=== PATIENT | male | born 1985 | race African-American/Black ===

== ENCOUNTER 2025-04-29 13:00 | Inpatient (IN) | payer OTHER, MEDICAID, MEDICARE ==
[~2025-04-29] VITALS: Ht 175.3 cm; Wt 61.5 kg
[2025-04-29 13:04] VITALS: O2SAT 98
[2025-04-29] MEDS: FUROSEMIDE 40MG/4ML VIAL IV SCH (14:29)
[2025-04-29] MEDS: LABETALOL 5MG/ML 4ML INJ IV SCH (14:31)
[2025-04-29] MEDS: DILTIAZEM HCL 5MG/ML 5ML VIAL IV ONE (15:31)
[2025-04-29 15:45] LABS: BASOPHILS % 1.1 % (0.0-2.0); EOSINOPHILS % 0.1 % (0.0-5.0); HEMATOCRIT. 34.7 % (42.0-52.0); HEMOGLOBIN. 10.9 g/dL (14.0-18.0); LYMPHOCYTES % 12.4 % (20.0-50.0); MEAN PLATELET VOLUME 9.5 fl (7.4-10.4); MONOCYTES % 10.4 % (2.0-8.0); NEUTROPHILS % 76.0 % (40.0-76.0); PLATELET 193 x1000/uL (130-400); RED BLOOD CELL COUNT 4.15 mill/uL (4.7-6.1); RED CELL DISTRIBUTION WIDTH 17.9 % (11.6-14.6)
[2025-04-29 15:52] LABS: INR 1.5
[2025-04-29 15:57] LABS: ETHANOL BLOOD < 10 mg/dL (<10)
[2025-04-29 15:58] LABS: ASPARTATE AMINOTRANSFERASE 75 IU/L (<34); BILIRUBIN DIRECT 0.5 mg/dL (<=3.0)
[2025-04-29 15:59] LABS: BILIRUBIN TOTAL 1.3 mg/dL (0.1-1.0); PROTEIN TOTAL 7.3 g/dL (6.0-8.3)
[2025-04-29 16:05] LABS: CREATININE 20.7 mg/dL (0.6-1.3); UREA NITROGEN BLOOD 103 mg/dL (9-23)
[2025-04-29] MEDS: DILTIAZEM HCL 5MG/ML 5ML VIAL IV SCH (16:17)
[2025-04-29] MEDS: ALBUTEROL (0.5%) 2.5MG/0.5ML NEB HHN SCH (16:40)
[2025-04-29] MEDS: SODIUM ZIRCONIUM CYCLOSILICATE 10GM/PACKET PO SCH (16:41)
[2025-04-29] MEDS: CALCIUM GLUCONATE 100MG/ML 10ML VIAL IV SCH (16:47)
[2025-04-29] MEDS: INSULIN REGULAR (HUMULIN R) 1000UNITS/10ML VIAL IV SCH (16:52)
[2025-04-29] MEDS: DEXTROSE 50% WATER 50ML SYRINGE IV SCH (16:56)
[2025-04-29] MEDS: SODIUM BICARBONATE 8.4% 50MEQ/50ML VIAL IV SCH (17:03)
[2025-04-29 19:21] LABS: UREA NITROGEN BLOOD 92.0 mg/dL (9-23)
[2025-04-29 19:24] LABS: CREATININE 20.8 mg/dL (0.6-1.3)
[2025-04-29 20:00] VITALS: BP 219/156; PULSE 120; RESP 22; TEMP 36.9; O2SAT 100
[2025-04-29] MEDS ORDERED: CALC-1042 PO (20:32)
[2025-04-29] MEDS ORDERED: ATEN50TA PO (20:32)
[2025-04-29] MEDS ORDERED: NIFE20CA8 PO (20:32)
[2025-04-29] MEDS ORDERED: CLONIDINE 0.1MG TABLET PO PRN (20:45)
[2025-04-29] MEDS ORDERED: NALOXONE HCL 0.4MG/ML VIAL IV PRN (21:00)
[2025-04-29] MEDS: NIFEDIPINE XL 90MG TAB PO SCH (21:08)
[2025-04-29] MEDS: LABETALOL HCL 200MG TABLET PO SCH (21:08)
[2025-04-29] MEDS: HYDRALAZINE HCL 10MG TABLET PO SCH (21:08)
[2025-04-29] MEDS: HYDROCODONE/ACETAMINOPHEN 10/325MG TABLET PO PRN (21:09)
[2025-04-29 23:50] VITALS: BP 176/112; PULSE 114; RESP 18; TEMP 36.55848; O2SAT 100
[2025-04-29 23:55] VITALS: BP 175/122; PULSE 121; RESP 19; TEMP 36.55848; O2SAT 100
[2025-04-29 23:56] VITALS: BP 219/156; PULSE 120; RESP 20; TEMP 36.9184
[2025-04-30] VITALS (13 sets, daily range): BP systolic 108–184; BP diastolic 70–122; PULSE 103–130; RESP 16–20; TEMP 36.1–37.1; O2SAT 91–100
[2025-04-30] MEDS ORDERED: DIPH50CA42 MT (01:43)
[2025-04-30 03:34] LABS: HEPATITIS A AB IGM NEGATIVE (Negative)
[2025-04-30 03:35] LABS: HEPATITIS B CORE AB IGM NEGATIVE (Negative); HEPATITIS C AB NON REACTIVE (Neg) (Negative)
[2025-04-30] MEDS: SEVELAMER CARBONATE 800 MG TABLET PO SCH (09:08)
[2025-04-30 10:45] LABS: BASOPHILS % 1.8 % (0.0-2.0); EOSINOPHILS % 1.4 % (0.0-5.0); HEMATOCRIT. 31.2 % (42.0-52.0); HEMOGLOBIN. 10.0 g/dL (14.0-18.0); LYMPHOCYTES % 20.0 % (20.0-50.0); MEAN PLATELET VOLUME 9.1 fl (7.4-10.4); MONOCYTES % 10.9 % (2.0-8.0); NEUTROPHILS % 65.9 % (40.0-76.0); PLATELET 163 x1000/uL (130-400); RED BLOOD CELL COUNT 3.76 mill/uL (4.7-6.1); RED CELL DISTRIBUTION WIDTH 17.8 % (11.6-14.6)
[2025-04-30 10:57] LABS: UREA NITROGEN BLOOD 51.0 mg/dL (9-23)
[2025-04-30 10:59] LABS: PHOSPHORUS 5.0 mg/dL (2.5-4.9)
[2025-04-30 11:17] LABS: CREATININE 14.0 mg/dL (0.6-1.3)
[2025-05-01] VITALS (7 sets, daily range): BP systolic 115–140; BP diastolic 69–90; PULSE 99–122; RESP 17–20; TEMP 36.3–36.7; O2SAT 95–100
[2025-05-01] MEDS: LABETALOL HCL 200MG TABLET PO SCH (12:07)
[2025-05-01] MEDS: ENOXAPARIN 80MG/0.8ML SYR SUBCUT SCH (13:00)
[2025-05-01 16:49] LABS: TROPONIN I HIGH SENSITIVITY 314 ng/L (3.0-53)
[2025-05-02] VITALS: BP 107/72; PULSE 119; RESP 17; TEMP 36.4; O2SAT 98
[2025-05-02 04:00] VITALS: BP 117/78; PULSE 121; RESP 18; TEMP 36.4; O2SAT 99
[2025-05-02 08:00] VITALS: BP 132/72; PULSE 120; RESP 16; TEMP 36.8; O2SAT 100
[2025-05-02 12:00] VITALS: BP 121/79; PULSE 114; RESP 16; TEMP 36.6; O2SAT 100
[2025-05-02 16:00] VITALS: BP 115/70; PULSE 120; RESP 18; TEMP 36.7; O2SAT 99
[2025-05-02 20:00] VITALS: BP_SYST 110; BP_SYST 92; BP_DIAS 52; BP_DIAS 75; PULSE 113; RESP 17; TEMP 36.4; O2SAT 96
[2025-05-03] VITALS (12 sets, daily range): BP systolic 118–153; BP diastolic 70–103; PULSE 102–123; RESP 16–18; TEMP 36.3918–37.1; O2SAT 98
[2025-05-03] MEDS: HYDROCODONE/ACETAMINOPHEN 10/325MG TABLET PO PRN (01:57)
[2025-05-03 18:19] LABS: BASOPHILS % 1.8 % (0.0-2.0); EOSINOPHILS % 4.1 % (0.0-5.0); HEMATOCRIT. 31.2 % (42.0-52.0); HEMOGLOBIN. 10.1 g/dL (14.0-18.0); LYMPHOCYTES % 22.3 % (20.0-50.0); MEAN PLATELET VOLUME 8.8 fl (7.4-10.4); MONOCYTES % 13.6 % (2.0-8.0); NEUTROPHILS % 58.2 % (40.0-76.0); PLATELET 180 x1000/uL (130-400); RED BLOOD CELL COUNT 3.73 mill/uL (4.7-6.1); RED CELL DISTRIBUTION WIDTH 17.9 % (11.6-14.6)
[2025-05-03 18:31] LABS: UREA NITROGEN BLOOD 38.0 mg/dL (9-23)
[2025-05-03 18:43] LABS: CREATININE 14.4 mg/dL (0.6-1.3)
[2025-05-03] MEDS: DILTIAZEM HCL 90MG TABLET PO SCH (21:47)
[2025-05-04 04:00] VITALS: BP 100/69; PULSE 60; RESP 17; TEMP 36.8; O2SAT 99
[2025-05-04 07:35] LABS: UREA NITROGEN BLOOD 42.0 mg/dL (9-23)
[2025-05-04 07:54] LABS: CREATININE 16.2 mg/dL (0.6-1.3)
[2025-05-04 08:00] VITALS: BP 109/70; PULSE 56; RESP 17; TEMP 36.2; O2SAT 97
[2025-05-04 08:05] LABS: BASOPHILS % 1.2 % (0.0-2.0); EOSINOPHILS % 3.5 % (0.0-5.0); HEMATOCRIT. 32.3 % (42.0-52.0); HEMOGLOBIN. 10.3 g/dL (14.0-18.0); LYMPHOCYTES % 36.8 % (20.0-50.0); MEAN PLATELET VOLUME 9.3 fl (7.4-10.4); MONOCYTES % 10.1 % (2.0-8.0); NEUTROPHILS % 48.4 % (40.0-76.0); PLATELET 166 x1000/uL (130-400); RED BLOOD CELL COUNT 3.86 mill/uL (4.7-6.1); RED CELL DISTRIBUTION WIDTH 18.0 % (11.6-14.6)
[2025-05-04] MEDS ORDERED: APIX5TAB MT (09:33)
[2025-05-04] MEDS ORDERED: DILT300C53 MT (09:33)
[2025-05-04 12:00] VITALS: BP 127/84; PULSE 76; RESP 17; TEMP 36.6; O2SAT 100
[2025-05-04 13:54] VITALS: BP 127/84; PULSE 76; RESP 17; TEMP 97.9
== END 2025-05-04 15:06 | disposition home or self-care (01) | DRG 291 ==
LOC: ER 14:28 → 5WST 17:40 → EDBEDREQ 17:46 → EDBEDREQTM 17:46 → ENRESERV 18:30
PROVIDERS: ADMIT Internal Medicine; ATTEND Internal Medicine
PROC: 5A1D70Z Performance of Urinary Filtration, Intermittent, Less than 6 Hours Per Day (ICD-10-PCS; principal; 2025-04-29)
PROC: 5A1D70Z Performance of Urinary Filtration, Intermittent, Less than 6 Hours Per Day (ICD-10-PCS; 2025-05-01)
PROC: 5A1D70Z Performance of Urinary Filtration, Intermittent, Less than 6 Hours Per Day (ICD-10-PCS; 2025-05-03)
DX: I13.2 Hypertensive heart and chronic kidney disease with heart failure and with stage 5 chronic kidney disease, or end stage renal disease (principal); I50.43 Acute on chronic combined systolic (congestive) and diastolic (congestive) heart failure; N18.6 End stage renal disease; E87.20 Acidosis, unspecified; I48.92 Unspecified atrial flutter; N17.9 Acute kidney failure, unspecified; Z99.2 Dependence on renal dialysis; Z79.01 Long term (current) use of anticoagulants; I16.1 Hypertensive emergency; D64.9 Anemia, unspecified; I48.20 Chronic atrial fibrillation, unspecified; E87.5 Hyperkalemia; Z79.899 Other long term (current) drug therapy; Z91.158 Patient's noncompliance with renal dialysis for other reason
CPT/HCPCS: 36415; 71045; 80048; 80076; 80320; 82962; 83735; 83880; 84100; 84145; 84443; 84484; 85025; 86705; 86709; 87340; 90935; 93005; 93306; 96374; 96375; 99291; J0612; J1650; J1938; J3490; G0480

== ENCOUNTER 2025-05-05 07:15 | Inpatient (IN) | payer OTHER, MEDICAID ==
[~2025-05-05] VITALS: Ht 170.2 cm; Wt 78.0 kg
[2025-05-05] VITALS (65 sets, daily range): BP systolic 107–185; BP diastolic 10–122; PULSE 41–97; RESP 12–32; TEMP 32.3–36.4; O2SAT 77–100
[2025-05-05] MEDS: PIPERACILLIN/TAZO 3.375G/50ML 50 ML IV SCH (00:16)
[~2025-05-05 07:15] MED LIST: APIX5TAB MT; CALC-1042 PO; DILT300C53 MT; DIPH50CA42 MT; NIFE20CA8 PO
[2025-05-05] MEDS ORDERED: VANCOMYCIN 1.5GM/250ML 250 ML IV STA (07:25)
[2025-05-05] MEDS ORDERED: CEFEPIME 2GM IN DEXT 5% 100ML IV ONE (07:30)
[2025-05-05] MEDS: CALCIUM CHLORIDE 1GM/10ML SYR IV ONE (07:39)
[2025-05-05] MEDS ORDERED: ACETAMINOPHEN 650MG/20.3ML UDC NG PRN (08:00)
[2025-05-05] MEDS ORDERED: ACETAMINOPHEN 650MG SUPP PR PRN ×3 (08:00→10:15)
[2025-05-05 08:06] LABS: HEMATOCRIT. 36.8 % (42.0-52.0); HEMOGLOBIN. 11.2 g/dL (14.0-18.0); MEAN PLATELET VOLUME 8.9 fl (7.4-10.4); PLATELET 132 x1000/uL (130-400); RED BLOOD CELL COUNT 4.10 mill/uL (4.7-6.1); RED CELL DISTRIBUTION WIDTH 19.2 % (11.6-14.6)
[2025-05-05 08:15] LABS: INR 1.5
[2025-05-05] MEDS: LACTATED RINGERS 1,000 ML IV SCH (08:20)
[2025-05-05] MEDS: CEFEPIME 2,000MG in DEXT 5% WATER 100ML IV SCH (08:25)
[2025-05-05] MEDS: EPINEPHRINE 5 MG in SODIUM CHLORIDE 0.9% 245 ML IV PRN (08:25)
[2025-05-05] MEDS: FENTANYL 2500MCG/250ML PMX 250 ML IV PRN (08:25)
[2025-05-05] MEDS ORDERED: LIDOCAINE HCL 1% 10 MG/ML 10ML VIAL ONE (08:27)
[2025-05-05 08:32] LABS: UREA NITROGEN BLOOD 39 mg/dL (9-23)
[2025-05-05 08:34] LABS: ASPARTATE AMINOTRANSFERASE 155 IU/L (<34); BILIRUBIN DIRECT 0.4 mg/dL (<=3.0)
[2025-05-05 08:35] LABS: BILIRUBIN TOTAL 0.8 mg/dL (0.1-1.0); PROTEIN TOTAL 7.1 g/dL (6.0-8.3)
[2025-05-05 08:37] LABS: CREATININE 17.5 mg/dL (0.6-1.3)
[2025-05-05 08:38] LABS: PHOSPHORUS 8.6 mg/dL (2.5-4.9)
[2025-05-05 08:42] LABS: TROPONIN I HIGH SENSITIVITY 163 ng/L (3.0-53)
[2025-05-05] MEDS: FENTANYL 2500MCG/250ML PMX 250 ML IV ONE (08:43)
[2025-05-05] MEDS: EPINEPHRINE 5 MG in SODIUM CHLORIDE 0.9% 245 ML IV STA (08:43)
[2025-05-05] MEDS: INSULIN REGULAR (HUMULIN R) 1000UNITS/10ML VIAL IV ONE (08:55)
[2025-05-05] MEDS: DEXTROSE 50% WATER 50ML SYRINGE IV ONE (08:55)
[2025-05-05] MEDS: VANCOMYCIN 1.5GM/250ML 250 ML IV SCH (09:11)
[2025-05-05] MEDS ORDERED: IPRATROPIUM/ALBUTEROL 0.5-3(2.5)MG/3ML NEB HHN PRN (09:30)
[2025-05-05 10:14] LABS: BG BASE EXCESS -26.4 mmol/L (-2.0-3.0); BG CARBOXYHEMOGLOBIN 0.9 % (0.5-1.5); BG DEOXYHEMOGLOBIN 1.3 % (0.0-5.0); BG FRACTION INSPIRED OXYGEN 100; BG HCO3 ACT 4.7 mmol/L (21.0-28.0); BG METHEMOGLOBIN 0.5 % (0.5-1.5); BG OXYGEN SATURATION 98.7 % (94.0-98.0); BG OXYHEMOGLOBIN 97.3 % (94.0-98.0); BG PCO2 25.2 mmHg (35.0-48.0); BG PEEP (cmH2O) 5.0 cmH2O; BG PH 6.886 (7.350-7.450); BG PO2 175.4 mmHg (83.0-108.0); BG SAMPLE SITE RIGHT RADIAL; BG TIDAL VOLUME(mL) 450.0 mL; BG TOTAL HEMOGLOBIN 7.3 g/dL (13.5-17.5); BG VENT MODE VENT - AC; BG VENT RATE 16.0 set
[2025-05-05] MEDS: SODIUM BICARBONATE 8.4% 50MEQ/50ML SYR IV NR (10:26)
[2025-05-05] MEDS: PANTOPRAZOLE SODIUM 40 MG/VIAL IV SCH (10:33)
[2025-05-05] MEDS ORDERED: NOREPINEPHRINE 32 MG in DEXT 5% WATER 218 ML IV PRN (11:00)
[2025-05-05 11:13] LABS: TROPONIN I HIGH SENSITIVITY 185 ng/L (3.0-53)
[2025-05-05] MEDS ORDERED: EPINEPHRINE 0.1MG/ML (1:10,000) 10ML SYR ONE (13:06)
[2025-05-05] MEDS ORDERED: SODIUM BICARBONATE 8.4% 50MEQ/50ML SYR IV ONE (13:06)
[2025-05-05] MEDS ORDERED: CALCIUM CHLORIDE 1GM/10ML SYR IV ONE (13:06)
[2025-05-05] MEDS ORDERED: MAGNESIUM SULFATE 4G IN WATER 100ML PREMIX IV ONE (13:06)
[2025-05-05] MEDS ORDERED: DEXTROSE 50% WATER 50ML SYRINGE IV ONE (13:06)
[2025-05-05 13:14] LABS: EOSINOPHILS % MANUAL 2.0 % (0.0-5.0); LYMPHOCYTES % MANUAL 38.0 % (20.0-50.0); MONOCYTES % MANUAL 20.0 % (2.0-8.0); MYELOCYTES % 1.0 % (0-0); NEUTROPHILS % MANUAL 39.0 % (45.0-75.0); PLATELET ESTIMATE NORMAL
[2025-05-05 13:39] LABS: HEPATITIS A AB IGM NEGATIVE (Negative)
[2025-05-05 13:40] LABS: HEPATITIS B CORE AB IGM NEGATIVE (Negative); HEPATITIS C AB NON REACTIVE (Neg) (Negative)
[2025-05-05] MEDS: EPINEPHRINE 10 MG in SODIUM CHLORIDE 0.9% 240 ML IV PRN (14:20)
[2025-05-05] MEDS: IPRATROPIUM/ALBUTEROL 0.5-3(2.5)MG/3ML NEB HHN SCH (14:57)
[2025-05-05] MEDS: ENOXAPARIN 80MG/0.8ML SYR SUBCUT SCH (15:34)
[2025-05-05 15:56] LABS: PLATELET 142 x1000/uL (130-400); RED BLOOD CELL COUNT 4.82 mill/uL (4.7-6.1); RED CELL DISTRIBUTION WIDTH 19.8 % (11.6-14.6)
[2025-05-05 16:11] LABS: UREA NITROGEN BLOOD 41 mg/dL (9-23)
[2025-05-05 16:43] LABS: CREATININE 16.5 mg/dL (0.6-1.3)
[2025-05-05 18:41] LABS: TROPONIN I HIGH SENSITIVITY 414 ng/L (3.0-53)
[2025-05-05] MEDS: LIDOCAINE 5% PATCH TOP SCH (20:00)
[2025-05-05 20:16] LABS: UREA NITROGEN BLOOD 29 mg/dL (9-23)
[2025-05-05 20:18] LABS: PHOSPHORUS 5.6 mg/dL (2.5-4.9)
[2025-05-05 20:19] LABS: CREATININE 12.1 mg/dL (0.6-1.3)
[2025-05-05] MEDS: NOREPINEPHRINE 32 MG in DEXT 5% WATER 218 ML IV PRN (20:56)
[2025-05-05] MEDS: DOPAMINE 400MG/250ML PREMIX 250 ML IV PRN (20:56)
[2025-05-05] MEDS: EPINEPHRINE 20 MG in SODIUM CHLORIDE 0.9% 480 ML IV PRN (20:57)
[2025-05-05 21:23] LABS: BG BASE EXCESS -14.8 mmol/L (-2.0-3.0); BG CARBOXYHEMOGLOBIN 0.9 % (0.5-1.5); BG DEOXYHEMOGLOBIN 5.5 % (0.0-5.0); BG FRACTION INSPIRED OXYGEN 40; BG HCO3 ACT 13.8 mmol/L (21.0-28.0); BG METHEMOGLOBIN 0.0 % (0.5-1.5); BG OXYGEN SATURATION 94.5 % (94.0-98.0); BG OXYHEMOGLOBIN 93.6 % (94.0-98.0); BG PCO2 42.6 mmHg (35.0-48.0); BG PEEP (cmH2O) 5.0 cmH2O; BG PH 7.127 (7.350-7.450); BG PO2 96.8 mmHg (83.0-108.0); BG TIDAL VOLUME(mL) 450.0 mL; BG TOTAL HEMOGLOBIN 11.8 g/dL (13.5-17.5); BG VENT MODE VENT - AC; BG VENT RATE 24.0 set
[2025-05-05 23:25] LABS: BASOPHILS % 0.8 % (0.0-2.0); EOSINOPHILS % 0.4 % (0.0-5.0); HEMATOCRIT. 34.5 % (42.0-52.0); HEMOGLOBIN. 11.0 g/dL (14.0-18.0); LYMPHOCYTES % 8.5 % (20.0-50.0); MEAN PLATELET VOLUME 8.2 fl (7.4-10.4); MONOCYTES % 4.1 % (2.0-8.0); NEUTROPHILS % 86.2 % (40.0-76.0); PLATELET 150 x1000/uL (130-400); RED BLOOD CELL COUNT 4.09 mill/uL (4.7-6.1); RED CELL DISTRIBUTION WIDTH 18.2 % (11.6-14.6)
[2025-05-05 23:39] LABS: TROPONIN I HIGH SENSITIVITY 770 ng/L (3.0-53)
[2025-05-06] VITALS (122 sets, daily range): BP systolic 90–170; BP diastolic 13–128; PULSE 83–106; RESP 16–32; TEMP 35.1–36.9; O2SAT 96–100
[2025-05-06] MEDS: PROPOFOL 10MG/ML 100ML 100 ML IV PRN ×2 (02:53→20:10)
[2025-05-06] MEDS ORDERED: LEVETIRACETAM 1,000MG in NACL 100ML PREMIX IV SCH (03:45)
[2025-05-06] MEDS: LEVETIRACETAM 1000MG PREMIX 100 ML IV SCH ×3 (04:05→20:31)
[2025-05-06 06:59] LABS: TROPONIN I HIGH SENSITIVITY 1339 ng/L (3.0-53)
[2025-05-06 08:33] LABS: HEMATOCRIT. 36.0 % (42.0-52.0); HEMOGLOBIN. 11.1 g/dL (14.0-18.0); MEAN PLATELET VOLUME 8.2 fl (7.4-10.4); PLATELET 150 x1000/uL (130-400); RED BLOOD CELL COUNT 4.15 mill/uL (4.7-6.1); RED CELL DISTRIBUTION WIDTH 18.9 % (11.6-14.6)
[2025-05-06 08:47] LABS: UREA NITROGEN BLOOD 38 mg/dL (9-23)
[2025-05-06 08:49] LABS: BILIRUBIN TOTAL 1.2 mg/dL (0.1-1.0); PROTEIN TOTAL 7.1 g/dL (6.0-8.3)
[2025-05-06] MEDS: MIDAZOLAM 100MG/100ML PMX 100 ML IV PRN (08:54)
[2025-05-06 09:00] LABS: ASPARTATE AMINOTRANSFERASE 1626 IU/L (<34)
[2025-05-06 09:03] LABS: CREATININE 12.7 mg/dL (0.6-1.3)
[2025-05-06 10:04] LABS: BG BASE EXCESS -3.8 mmol/L (-2.0-3.0); BG CARBOXYHEMOGLOBIN 0.5 % (0.5-1.5); BG DEOXYHEMOGLOBIN 0.2 % (0.0-5.0); BG FRACTION INSPIRED OXYGEN 60; BG HCO3 ACT 19.6 mmol/L (21.0-28.0); BG METHEMOGLOBIN 0.3 % (0.5-1.5); BG OXYGEN SATURATION 99.8 % (94.0-98.0); BG OXYHEMOGLOBIN 99.0 % (94.0-98.0); BG PCO2 30.6 mmHg (35.0-48.0); BG PEEP (cmH2O) 5.0 cmH2O; BG PH 7.425 (7.350-7.450); BG PO2 201.4 mmHg (83.0-108.0); BG SAMPLE SITE RIGHT RADIAL; BG TIDAL VOLUME(mL) 450.0 mL; BG TOTAL HEMOGLOBIN 11.6 g/dL (13.5-17.5); BG VENT MODE VENT - AC; BG VENT RATE 28.0 set
[2025-05-06] MEDS ORDERED: IOHEXOL-350 100 ML BOTTLE ONE (11:11)
[2025-05-06 11:40] LABS: BAND% 3.0 % (1.0-6.0); LYMPHOCYTES % MANUAL 4.0 % (20.0-50.0); MONOCYTES % MANUAL 5.0 % (2.0-8.0); NEUTROPHILS % MANUAL 88.0 % (45.0-75.0); PLATELET ESTIMATE NORMAL
[2025-05-06 14:02] LABS: TROPONIN I HIGH SENSITIVITY 1368 ng/L (3.0-53)
[2025-05-07] VITALS (102 sets, daily range): BP systolic 112–145; BP diastolic 72–98; PULSE 83–94; RESP 16–28; TEMP 37.00296–37.16964; O2SAT 97–100
[2025-05-07] MEDS: DOPAMINE 800MG PREMIX (DOUBLE) 250 ML IV PRN (05:28)
[2025-05-07] MEDS: DEXTROSE 50% WATER 50ML SYRINGE IV PRN (09:00)
[2025-05-07 09:29] LABS: BG BASE EXCESS 0.3 mmol/L (-2.0-3.0); BG CARBOXYHEMOGLOBIN 0.1 % (0.5-1.5); BG DEOXYHEMOGLOBIN 1.6 % (0.0-5.0); BG FRACTION INSPIRED OXYGEN 30; BG HCO3 ACT 20.9 mmol/L (21.0-28.0); BG METHEMOGLOBIN 0.3 % (0.5-1.5); BG OXYGEN SATURATION 98.4 % (94.0-98.0); BG OXYHEMOGLOBIN 98.0 % (94.0-98.0); BG PCO2 22.3 mmHg (35.0-48.0); BG PEEP (cmH2O) 5.0 cmH2O; BG PH 7.590 (7.350-7.450); BG PO2 109.4 mmHg (83.0-108.0); BG SAMPLE SITE RIGHT RADIAL; BG TIDAL VOLUME(mL) 500.0 mL; BG TOTAL HEMOGLOBIN 10.1 g/dL (13.5-17.5); BG TOTAL RESPIRATORY RATE 24 b/min; BG VENT MODE VENT - AC; BG VENT RATE 24.0 set
[2025-05-07 10:08] LABS: TRIGLYCERIDE 341.0 mg/dL (0-150)
[2025-05-07 10:09] LABS: UREA NITROGEN BLOOD 42.0 mg/dL (9-23)
[2025-05-07 11:11] LABS: CREATININE 13.6 mg/dL (0.6-1.3)
[2025-05-07] MEDS: DEXT 5%/0.9% NACL 1,000 ML IV SCH (12:40)
[2025-05-07 12:45] LABS: BASOPHILS % 0.4 % (0.0-2.0); EOSINOPHILS % 0.6 % (0.0-5.0); HEMATOCRIT. 29.2 % (42.0-52.0); HEMOGLOBIN. 9.5 g/dL (14.0-18.0); LYMPHOCYTES % 10.9 % (20.0-50.0); MEAN PLATELET VOLUME 8.7 fl (7.4-10.4); MONOCYTES % 5.0 % (2.0-8.0); NEUTROPHILS % 83.1 % (40.0-76.0); PLATELET 82 x1000/uL (130-400); RED BLOOD CELL COUNT 3.54 mill/uL (4.7-6.1); RED CELL DISTRIBUTION WIDTH 18.4 % (11.6-14.6)
[2025-05-07] MEDS ORDERED: LEVETIRACETAM 1,000MG in NACL 100ML PREMIX IV SCH (15:45)
[2025-05-07] MEDS: LEVETIRACETAM 1000MG PREMIX 100 ML IV SCH (16:01)
[2025-05-07] MEDS: LACOSAMIDE 100MG/10ML ORAL SOLN GT SCH ×2 (16:12→20:18)
[2025-05-07 16:25] LABS: BG BASE EXCESS 1.4 mmol/L (-2.0-3.0); BG CARBOXYHEMOGLOBIN 0.3 % (0.5-1.5); BG DEOXYHEMOGLOBIN 3.4 % (0.0-5.0); BG FRACTION INSPIRED OXYGEN 40; BG HCO3 ACT 26.0 mmol/L (21.0-28.0); BG METHEMOGLOBIN 0.3 % (0.5-1.5); BG OXYGEN SATURATION 96.6 % (94.0-98.0); BG OXYHEMOGLOBIN 96.0 % (94.0-98.0); BG PCO2 41.0 mmHg (35.0-48.0); BG PEEP (cmH2O) 5.0 cmH2O; BG PH 7.420 (7.350-7.450); BG PO2 93.4 mmHg (83.0-108.0); BG SAMPLE SITE RIGHT RADIAL; BG TIDAL VOLUME(mL) 500.0 mL; BG TOTAL HEMOGLOBIN 10.8 g/dL (13.5-17.5); BG VENT MODE VENT - AC; BG VENT RATE 16.0 set
[2025-05-07] MEDS: LEVETIRACETAM 1500MG PREMIX 100 ML IV SCH ×2 (20:19)
[2025-05-07] MEDS: PROPOFOL 10MG/ML 100ML 100 ML IV PRN (21:31)
[2025-05-08] VITALS (98 sets, daily range): BP systolic 118–137; BP diastolic 64–101; PULSE 63–84; RESP 16–25; TEMP 36.4–36.7; O2SAT 96–100
[2025-05-08 11:05] LABS: PLATELET 68 x1000/uL (130-400); RED BLOOD CELL COUNT 3.62 mill/uL (4.7-6.1); RED CELL DISTRIBUTION WIDTH 19.3 % (11.6-14.6); UREA NITROGEN BLOOD 36 mg/dL (9-23)
[2025-05-08 11:07] LABS: PHOSPHORUS 4.3 mg/dL (2.5-4.9)
[2025-05-08 11:14] LABS: CREATININE 10.8 mg/dL (0.6-1.3)
[2025-05-08] MEDS: PROPOFOL 10MG/ML 100ML 100 ML IV PRN (17:03)
[2025-05-08] MEDS: SODIUM CHLORIDE 0.9% IV SCH (21:15)
[2025-05-08] MEDS: LEVETIRACETAM IV SCH (21:15)
[2025-05-08] MEDS ORDERED: DEXTROSE 50% WATER 50ML SYRINGE IV PRN (21:30)
[2025-05-09] VITALS (103 sets, daily range): BP systolic 105–129; BP diastolic 65–96; PULSE 54–68; RESP 16–24; TEMP 36.2–37; O2SAT 98–100
[2025-05-09] MEDS: BLOOD SUGAR DIAGNOSTIC STRIP TEST SCH
[2025-05-09 06:24] LABS: BASOPHILS % 1.4 % (0.0-2.0); EOSINOPHILS % 4.8 % (0.0-5.0); HEMATOCRIT. 27.7 % (42.0-52.0); HEMOGLOBIN. 8.9 g/dL (14.0-18.0); LYMPHOCYTES % 15.0 % (20.0-50.0); MEAN PLATELET VOLUME 9.8 fl (7.4-10.4); MONOCYTES % 6.7 % (2.0-8.0); NEUTROPHILS % 72.1 % (40.0-76.0); PLATELET 57 x1000/uL (130-400); RED BLOOD CELL COUNT 3.31 mill/uL (4.7-6.1); RED CELL DISTRIBUTION WIDTH 19.7 % (11.6-14.6)
[2025-05-09 06:54] LABS: TRIGLYCERIDE 228 mg/dL (0-150); UREA NITROGEN BLOOD 42 mg/dL (9-23)
[2025-05-09 06:56] LABS: PHOSPHORUS 4.7 mg/dL (2.5-4.9)
[2025-05-09 07:06] LABS: CREATININE 11.8 mg/dL (0.6-1.3)
[2025-05-09 10:14] LABS: BG BASE EXCESS -2.9 mmol/L (-2.0-3.0); BG CARBOXYHEMOGLOBIN 0.2 % (0.5-1.5); BG DEOXYHEMOGLOBIN 1.7 % (0.0-5.0); BG FRACTION INSPIRED OXYGEN 30; BG HCO3 ACT 19.5 mmol/L (21.0-28.0); BG METHEMOGLOBIN 0.3 % (0.5-1.5); BG OXYGEN SATURATION 98.3 % (94.0-98.0); BG OXYHEMOGLOBIN 97.8 % (94.0-98.0); BG PCO2 26.5 mmHg (35.0-48.0); BG PEEP (cmH2O) 5.0 cmH2O; BG PH 7.485 (7.350-7.450); BG PO2 108.0 mmHg (83.0-108.0); BG SAMPLE SITE RIGHT RADIAL; BG TIDAL VOLUME(mL) 500.0 mL; BG TOTAL HEMOGLOBIN 10.0 g/dL (13.5-17.5); BG VENT MODE VENT - AC; BG VENT RATE 16.0 set
[2025-05-09] MEDS ORDERED: CEFEPIME 1GM IN DEXT 5% 50ML IV SCH (10:15)
[2025-05-09] MEDS: PROPOFOL 10MG/ML 100ML 100 ML IV PRN (10:56)
[2025-05-09] MEDS: CEFEPIME 2GM PREMIX 100ML IV SCH (12:00)
[2025-05-10] VITALS (110 sets, daily range): BP systolic 114–177; BP diastolic 62–146; PULSE 56–90; RESP 16–20; TEMP 36.1–36.78072; O2SAT 97–100
[2025-05-10 06:27] LABS: BASOPHILS % 2.1 % (0.0-2.0); EOSINOPHILS % 5.5 % (0.0-5.0); HEMATOCRIT. 29.5 % (42.0-52.0); HEMOGLOBIN. 9.6 g/dL (14.0-18.0); LYMPHOCYTES % 16.3 % (20.0-50.0); MEAN PLATELET VOLUME 9.9 fl (7.4-10.4); MONOCYTES % 8.2 % (2.0-8.0); NEUTROPHILS % 67.9 % (40.0-76.0); PLATELET 60 x1000/uL (130-400); RED BLOOD CELL COUNT 3.52 mill/uL (4.7-6.1); RED CELL DISTRIBUTION WIDTH 19.1 % (11.6-14.6)
[2025-05-10 06:40] LABS: UREA NITROGEN BLOOD 26.0 mg/dL (9-23)
[2025-05-10 06:42] LABS: CREATININE 9.0 mg/dL (0.6-1.3)
[2025-05-10] MEDS: PROPOFOL 10MG/ML 100ML 100 ML IV PRN (11:16)
[2025-05-10] MEDS: LEVETIRACETAM 1500MG PREMIX 100 ML IV NR (16:51)
[2025-05-10] MEDS: LEVETIRACETAM 1500MG PREMIX 100 ML IV SCH (17:28)
[2025-05-10] MEDS: EPOETIN ALFA-EPBX 4,000 UNITS/ML VIAL SUBCUT SCH (20:30)
[2025-05-10] MEDS: LACOSAMIDE 100MG/10ML ORAL SOLN GT SCH ×2 (20:31→20:34)
[2025-05-10] MEDS ORDERED: LEVETIRACETAM 5MG/ML SYR IV ONE (21:00)
[2025-05-11] VITALS (102 sets, daily range): BP systolic 126–175; BP diastolic 90–123; PULSE 69–83; RESP 16–17; TEMP 36.33624–37.2252; O2SAT 9–100
[2025-05-11 08:46] LABS: BASOPHILS % 0.7 % (0.0-2.0); EOSINOPHILS % 3.4 % (0.0-5.0); HEMATOCRIT. 32.2 % (42.0-52.0); HEMOGLOBIN. 10.3 g/dL (14.0-18.0); LYMPHOCYTES % 24.4 % (20.0-50.0); MEAN PLATELET VOLUME 10.5 fl (7.4-10.4); MONOCYTES % 10.2 % (2.0-8.0); NEUTROPHILS % 61.3 % (40.0-76.0); PLATELET 66 x1000/uL (130-400); RED BLOOD CELL COUNT 3.84 mill/uL (4.7-6.1); RED CELL DISTRIBUTION WIDTH 19.6 % (11.6-14.6)
[2025-05-11] MEDS: LACOSAMIDE 300 MG in SODIUM CHLORIDE 0.9% 100 ML IV SCH (09:13)
[2025-05-11 09:27] LABS: BG BASE EXCESS -5.5 mmol/L (-2.0-3.0); BG CARBOXYHEMOGLOBIN 0.5 % (0.5-1.5); BG DEOXYHEMOGLOBIN 1.2 % (0.0-5.0); BG FRACTION INSPIRED OXYGEN 30; BG HCO3 ACT 18.4 mmol/L (21.0-28.0); BG METHEMOGLOBIN 0.3 % (0.5-1.5); BG OXYGEN SATURATION 98.8 % (94.0-98.0); BG OXYHEMOGLOBIN 98.0 % (94.0-98.0); BG PCO2 30.2 mmHg (35.0-48.0); BG PEEP (cmH2O) 5.0 cmH2O; BG PH 7.402 (7.350-7.450); BG PO2 133.0 mmHg (83.0-108.0); BG SAMPLE SITE RIGHT RADIAL; BG TIDAL VOLUME(mL) 500.0 mL; BG TOTAL HEMOGLOBIN 10.1 g/dL (13.5-17.5); BG VENT MODE VENT - AC; BG VENT RATE 16.0 set
[2025-05-11 10:10] LABS: PROTEIN TOTAL 5.9 g/dL (6.0-8.3); TRIGLYCERIDE 204 mg/dL (0-150); UREA NITROGEN BLOOD 30 mg/dL (9-23)
[2025-05-11 10:11] LABS: ASPARTATE AMINOTRANSFERASE 161 IU/L (<34)
[2025-05-11 10:12] LABS: BILIRUBIN DIRECT 0.4 mg/dL (<=3.0); BILIRUBIN TOTAL 0.5 mg/dL (0.1-1.0); PHOSPHORUS 6.7 mg/dL (2.5-4.9)
[2025-05-11 10:24] LABS: CREATININE 10.1 mg/dL (0.6-1.3)
[2025-05-11] MEDS ORDERED: PROPOFOL 10MG/ML 100ML 100 ML IV PRN (11:30)
[2025-05-11] MEDS: PROPOFOL 10MG/ML 100ML 100 ML IV PRN (15:59)
[2025-05-11] MEDS: AMLODIPINE 10MG TABLET PO SCH (17:43)
[2025-05-11] MEDS: HYDRALAZINE 20MG/ML VIAL IV PRN (17:44)
[2025-05-11] MEDS: LACOSAMIDE 150 MG in SODIUM CHLORIDE 0.9% 100 ML IV SCH (20:44)
[2025-05-12] VITALS (106 sets, daily range): BP systolic 100–146; BP diastolic 58–109; PULSE 69–78; RESP 16–26; TEMP 36.2–36.8; O2SAT 94–100
[2025-05-12 06:17] LABS: AMPHETAMINE SCREEN Negative ng/mL (Cutoff:50); BARBITURATE SCREEN Negative ug/mL (Cutoff:0.1); CANNABINOID SCREEN Negative ng/mL (Cutoff:5); OXYCODONE SCREEN Negative ng/mL (Cutoff:5); PHENCYCLIDINE SCREEN Negative ng/mL (Cutoff:8)
[2025-05-12 07:08] LABS: BASOPHILS % 1.0 % (0.0-2.0); EOSINOPHILS % 3.2 % (0.0-5.0); HEMATOCRIT. 30.9 % (42.0-52.0); HEMOGLOBIN. 10.1 g/dL (14.0-18.0); LYMPHOCYTES % 17.0 % (20.0-50.0); MEAN PLATELET VOLUME 9.8 fl (7.4-10.4); MONOCYTES % 10.7 % (2.0-8.0); NEUTROPHILS % 68.1 % (40.0-76.0); PLATELET 74 x1000/uL (130-400); RED BLOOD CELL COUNT 3.74 mill/uL (4.7-6.1); RED CELL DISTRIBUTION WIDTH 18.9 % (11.6-14.6)
[2025-05-12 07:32] LABS: TRIGLYCERIDE 202 mg/dL (0-150); UREA NITROGEN BLOOD 25 mg/dL (9-23)
[2025-05-12 07:34] LABS: PHOSPHORUS 6.1 mg/dL (2.5-4.9)
[2025-05-12 07:45] LABS: CREATININE 8.0 mg/dL (0.6-1.3)
[2025-05-12] MEDS: SEVELAMER CARBONATE 800 MG TABLET PO SCH (09:09)
[2025-05-12 10:01] LABS: *AMPHETAMINES SCREEN URINE NEGATIVE (NEGATIVE); *BARBITURATES SCREEN URINE NEGATIVE (NEGATIVE); *BENZODIAZEPINES SCREEN URINE PRESUMPTIVE POSITIVE (NEGATIVE); *COCAINE SCREEN URINE NEGATIVE (NEGATIVE); METHADONE URINE SCREEN NEGATIVE (NEGATIVE)
[2025-05-12 10:02] LABS: CANNABINOID URINE SCREEN NEGATIVE (NEGATIVE); ECSTASY MDMA SCREEN URINE NEGATIVE (NEGATIVE); OPIATES URINE SCREEN NEGATIVE (NEGATIVE); PHENCYCLIDINE URINE SCREEN NEGATIVE (NEGATIVE)
[2025-05-12] MEDS: PROPOFOL 10MG/ML 100ML 100 ML IV PRN (15:46)
[2025-05-13] VITALS (103 sets, daily range): BP systolic 124–213; BP diastolic 86–130; PULSE 69–80; RESP 15–22; TEMP 35.8–38.3; O2SAT 98–100
[2025-05-13 07:14] LABS: UREA NITROGEN BLOOD 34.0 mg/dL (9-23)
[2025-05-13 07:54] LABS: CREATININE 9.2 mg/dL (0.6-1.3)
[2025-05-13] MEDS ORDERED: PROPOFOL 10MG/ML 100ML 100 ML IV PRN (08:00)
[2025-05-13 15:07] LABS: 7-AMINOCLONAZEPAM CONFIRM Negative (.); ALPRAZOLAM CONFIRM Negative (.); BENZODIAZEPINE SCREEN ++POSITIVE++ ng/mL (Cutoff:20); CHLORDIAZEPOXIDE CONFIRM Negative (.); CLONAZEPAM CONFIRM Negative (.); DESALKYLFLURAZEPAM CONFIRM Negative (.); DESMETHYLCHLORDIAZEPOXIDE Negative (.); DESMETHYLDIAZEPAM CONFIRM Negative (.); DIAZEPAM CONFIRM Negative (.); FLURAZEPAM CONFIRM Negative (.); LORAZEPAM CONFIRM Negative (.); MIDAZOLAM CONFIRM 301.8 ng/mL (.); OXAZEPAM CONFIRM Negative (.); TEMAZEPAM CONFIRM Negative (.); TRIAZOLAM CONFIRM Negative (.)
[2025-05-13] MEDS: LACOSAMIDE 100MG/10ML ORAL SOLN GT SCH (21:22)
[2025-05-13] MEDS: LACOSAMIDE 100MG/10ML ORAL SOLN PO SCH (21:23)
[2025-05-14] VITALS (73 sets, daily range): BP systolic 129–198; BP diastolic 93–130; PULSE 73–86; RESP 14–24; TEMP 36.4–37.4; O2SAT 98–100
[2025-05-14] MEDS: LORAZEPAM 2MG/ML UD SYRINGE IV PRN (03:05)
[2025-05-14 12:03] LABS: BASOPHILS % 1.0 % (0.0-2.0); EOSINOPHILS % 2.1 % (0.0-5.0); HEMATOCRIT. 36.1 % (42.0-52.0); HEMOGLOBIN. 11.7 g/dL (14.0-18.0); LYMPHOCYTES % 8.0 % (20.0-50.0); MEAN PLATELET VOLUME 9.4 fl (7.4-10.4); MONOCYTES % 12.4 % (2.0-8.0); NEUTROPHILS % 76.5 % (40.0-76.0); PLATELET 152 x1000/uL (130-400); RED BLOOD CELL COUNT 4.40 mill/uL (4.7-6.1); RED CELL DISTRIBUTION WIDTH 19.4 % (11.6-14.6)
[2025-05-14 12:17] LABS: CREATININE 8.0 mg/dL (0.6-1.3); UREA NITROGEN BLOOD 33 mg/dL (9-23)
[2025-05-14 12:19] LABS: PHOSPHORUS 5.6 mg/dL (2.5-4.9)
[2025-05-14] MEDS: CLONIDINE 0.1MG TABLET PO PRN (12:36)
[2025-05-15] VITALS (81 sets, daily range): BP systolic 106–187; BP diastolic 70–136; PULSE 70–93; RESP 14–24; TEMP 36.1–36.6696; O2SAT 94–100
[2025-05-15 06:48] LABS: BASOPHILS % 1.0 % (0.0-2.0); EOSINOPHILS % 2.2 % (0.0-5.0); HEMATOCRIT. 34.2 % (42.0-52.0); HEMOGLOBIN. 11.2 g/dL (14.0-18.0); LYMPHOCYTES % 13.7 % (20.0-50.0); MEAN PLATELET VOLUME 9.1 fl (7.4-10.4); MONOCYTES % 12.7 % (2.0-8.0); NEUTROPHILS % 70.4 % (40.0-76.0); PLATELET 156 x1000/uL (130-400); RED BLOOD CELL COUNT 4.17 mill/uL (4.7-6.1); RED CELL DISTRIBUTION WIDTH 20.4 % (11.6-14.6)
[2025-05-15 07:14] LABS: UREA NITROGEN BLOOD 37 mg/dL (9-23)
[2025-05-15 07:16] LABS: PHOSPHORUS 5.9 mg/dL (2.5-4.9)
[2025-05-15 08:33] LABS: CREATININE 9.3 mg/dL (0.6-1.3)
[2025-05-15] MEDS: ACETAMINOPHEN 650MG/20.3ML UDC GT PRN (12:16)
[2025-05-15] MEDS: HYDRALAZINE HCL 25MG TABLET PO SCH (21:06)
[2025-05-15] MEDS: PROPOFOL 10MG/ML 100ML 100 ML IV PRN (22:19)
[2025-05-16] VITALS (60 sets, daily range): BP systolic 123–171; BP diastolic 86–114; PULSE 80–92; RESP 13–18; TEMP 36.4–37.2; O2SAT 82–100
[2025-05-16 06:38] LABS: PLATELET 156 x1000/uL (130-400); RED BLOOD CELL COUNT 3.70 mill/uL (4.7-6.1); RED CELL DISTRIBUTION WIDTH 20.0 % (11.6-14.6)
[2025-05-16] MEDS ORDERED: LEVETIRACETAM 1500MG PREMIX 100 ML IV PRN (08:30)
[2025-05-16 11:24] LABS: TRIGLYCERIDE 161 mg/dL (0-150); UREA NITROGEN BLOOD 31 mg/dL (9-23)
[2025-05-16 11:26] LABS: PHOSPHORUS 4.8 mg/dL (2.5-4.9)
[2025-05-16 11:29] LABS: CREATININE 8.3 mg/dL (0.6-1.3)
[2025-05-16 19:09] LABS: BENZOYLECGONINE 41 ng/mL (.); COCAINE Negative (.)
[2025-05-17] VITALS (87 sets, daily range): BP systolic 137–199; BP diastolic 94–136; PULSE 78–107; RESP 10–26; TEMP 36.6696; O2SAT 75–100
[2025-05-17] MEDS: PROPOFOL 10MG/ML 100ML 100 ML IV PRN (02:58)
[2025-05-17 06:08] LABS: BASOPHILS % 1.2 % (0.0-2.0); EOSINOPHILS % 2.6 % (0.0-5.0); HEMATOCRIT. 29.1 % (42.0-52.0); HEMOGLOBIN. 9.5 g/dL (14.0-18.0); LYMPHOCYTES % 13.9 % (20.0-50.0); MEAN PLATELET VOLUME 8.7 fl (7.4-10.4); MONOCYTES % 14.9 % (2.0-8.0); NEUTROPHILS % 67.4 % (40.0-76.0); PLATELET 178 x1000/uL (130-400); RED BLOOD CELL COUNT 3.49 mill/uL (4.7-6.1); RED CELL DISTRIBUTION WIDTH 19.7 % (11.6-14.6)
[2025-05-17 06:26] LABS: UREA NITROGEN BLOOD 42.0 mg/dL (9-23)
[2025-05-17 06:28] LABS: PHOSPHORUS 5.6 mg/dL (2.5-4.9)
[2025-05-17 06:29] LABS: CREATININE 9.7 mg/dL (0.6-1.3)
[2025-05-17] MEDS: HYDRALAZINE HCL 100MG TABLET PO SCH (14:50)
[2025-05-17] MEDS: LACOSAMIDE 300 MG in SODIUM CHLORIDE 0.9% 100 ML IV SCH (21:15)
[2025-05-17] MEDS: PHENOBARBITAL SODIUM 130MG/ML 1ML IV SCH (21:15)
[2025-05-18] VITALS (106 sets, daily range): BP systolic 142–226; BP diastolic 89–134; PULSE 80–100; RESP 15–32; TEMP 37.6–37.7; O2SAT 92–100
[2025-05-18 04:07] LABS: DIHYDROCODEINE UNCONJUGATED 2.2 ng/mL (.); OPIATES SCREEN ++POSITIVE++ ng/mL (Cutoff:5)
[2025-05-18 06:25] LABS: BASOPHILS % 1.1 % (0.0-2.0); EOSINOPHILS % 1.6 % (0.0-5.0); HEMATOCRIT. 31.1 % (42.0-52.0); HEMOGLOBIN. 10.3 g/dL (14.0-18.0); LYMPHOCYTES % 15.9 % (20.0-50.0); MEAN PLATELET VOLUME 8.6 fl (7.4-10.4); MONOCYTES % 14.8 % (2.0-8.0); NEUTROPHILS % 66.6 % (40.0-76.0); PLATELET 195 x1000/uL (130-400); RED BLOOD CELL COUNT 3.79 mill/uL (4.7-6.1); RED CELL DISTRIBUTION WIDTH 20.1 % (11.6-14.6)
[2025-05-18] MEDS ORDERED: PROPOFOL 10MG/ML 100ML 100 ML IV PRN (07:00)
[2025-05-18] MEDS: CARVEDILOL 6.25 MG TABLET PO SCH (07:04)
[2025-05-18] MEDS: AMLODIPINE 10MG TABLET PO SCH (07:05)
[2025-05-18] MEDS: PROPOFOL 10MG/ML 100ML 100 ML IV PRN (07:44)
[2025-05-18 08:28] LABS: TRIGLYCERIDE 219.0 mg/dL (0-150); UREA NITROGEN BLOOD 29.0 mg/dL (9-23)
[2025-05-18 08:37] LABS: CREATININE 6.9 mg/dL (0.6-1.3)
[2025-05-18] MEDS: LABETALOL 5MG/ML 4ML INJ IV PRN (10:00)
[2025-05-18] MEDS: ENOXAPARIN 30MG/0.3ML SYR SUBCUT SCH (12:31)
[2025-05-18] MEDS: MIDAZOLAM 100MG/100ML PMX 100 ML IV PRN (13:43)
[2025-05-19] VITALS (103 sets, daily range): BP systolic 153–214; BP diastolic 88–133; PULSE 86–101; RESP 15–22; TEMP 36.44736–37.8; O2SAT 90–100
[2025-05-19 06:54] LABS: BASOPHILS % 1.1 % (0.0-2.0); EOSINOPHILS % 2.5 % (0.0-5.0); HEMATOCRIT. 31.3 % (42.0-52.0); HEMOGLOBIN. 10.2 g/dL (14.0-18.0); LYMPHOCYTES % 18.6 % (20.0-50.0); MEAN PLATELET VOLUME 9.0 fl (7.4-10.4); MONOCYTES % 14.0 % (2.0-8.0); NEUTROPHILS % 63.8 % (40.0-76.0); PLATELET 209 x1000/uL (130-400); RED BLOOD CELL COUNT 3.74 mill/uL (4.7-6.1); RED CELL DISTRIBUTION WIDTH 20.8 % (11.6-14.6)
[2025-05-19 08:38] LABS: PHENOBARBITAL 39.4 ug/mL (15.0-40.0); TRIGLYCERIDE 148 mg/dL (0-150); UREA NITROGEN BLOOD 41 mg/dL (9-23)
[2025-05-19 08:39] LABS: PHOSPHORUS 6.6 mg/dL (2.5-4.9)
[2025-05-19 08:46] LABS: CREATININE 8.3 mg/dL (0.6-1.3)
[2025-05-19] MEDS: ONDANSETRON HCL 4MG/2ML INJ IV PRN (13:41)
[2025-05-19] MEDS: LANTHANUM CARBONATE 500MG CHEW TABLET PO SCH (13:41)
[2025-05-19] MEDS ORDERED: PROPOFOL 10MG/ML 100ML 100 ML IV PRN (14:15)
[2025-05-19] MEDS: LACOSAMIDE 150 MG in SODIUM CHLORIDE 0.9% 100 ML IV SCH (21:49)
[2025-05-19] MEDS: PROPOFOL 10MG/ML 100ML 100 ML IV PRN (21:49)
[2025-05-19] MEDS: LEVETIRACETAM 1500MG PREMIX 100 ML IV PRN (22:15)
[2025-05-20] VITALS (82 sets, daily range): BP systolic 126–178; BP diastolic 73–119; PULSE 85–95; RESP 16–29; TEMP 36.3–36.7; O2SAT 90–99
[2025-05-20] MEDS: NICARDIPINE 40MG/200ML PREMIX 200 ML IV PRN (02:03)
[2025-05-20] MEDS: NICARDIPINE 50 MG in SODIUM CHLORIDE 0.9% 230 ML IV PRN (05:38)
[2025-05-20 06:43] LABS: BASOPHILS % 0.8 % (0.0-2.0); EOSINOPHILS % 2.9 % (0.0-5.0); HEMATOCRIT. 31.2 % (42.0-52.0); HEMOGLOBIN. 10.3 g/dL (14.0-18.0); LYMPHOCYTES % 13.1 % (20.0-50.0); MEAN PLATELET VOLUME 9.5 fl (7.4-10.4); MONOCYTES % 10.6 % (2.0-8.0); NEUTROPHILS % 72.6 % (40.0-76.0); PLATELET 219 x1000/uL (130-400); RED BLOOD CELL COUNT 3.75 mill/uL (4.7-6.1); RED CELL DISTRIBUTION WIDTH 20.6 % (11.6-14.6)
[2025-05-20 07:18] LABS: UREA NITROGEN BLOOD 37 mg/dL (9-23)
[2025-05-20 07:20] LABS: PHOSPHORUS 5.5 mg/dL (2.5-4.9)
[2025-05-20 08:57] LABS: CREATININE 7.0 mg/dL (0.6-1.3)
[2025-05-20] MEDS: PROPOFOL 10MG/ML 100ML 100 ML IV PRN (18:20)
[2025-05-21] VITALS (108 sets, daily range): BP systolic 120–184; BP diastolic 70–103; PULSE 85–109; RESP 16–25; TEMP 36.78072; O2SAT 93–99
[2025-05-21 08:34] LABS: BASOPHILS % 1.0 % (0.0-2.0); EOSINOPHILS % 3.5 % (0.0-5.0); HEMATOCRIT. 28.9 % (42.0-52.0); HEMOGLOBIN. 9.5 g/dL (14.0-18.0); LYMPHOCYTES % 11.3 % (20.0-50.0); MEAN PLATELET VOLUME 9.4 fl (7.4-10.4); MONOCYTES % 10.5 % (2.0-8.0); NEUTROPHILS % 73.7 % (40.0-76.0); PLATELET 203 x1000/uL (130-400); RED BLOOD CELL COUNT 3.50 mill/uL (4.7-6.1); RED CELL DISTRIBUTION WIDTH 20.9 % (11.6-14.6)
[2025-05-21] MEDS: PROPOFOL 10MG/ML 100ML 100 ML IV PRN (08:48)
[2025-05-21 09:06] LABS: TRIGLYCERIDE 121.0 mg/dL (0-150)
[2025-05-21 09:07] LABS: UREA NITROGEN BLOOD 56.0 mg/dL (9-23)
[2025-05-21 09:08] LABS: CREATININE 8.1 mg/dL (0.6-1.3)
[2025-05-21] MEDS: CARVEDILOL 12.5MG TABLET PO SCH (21:21)
[2025-05-21] MEDS: AMLODIPINE 10MG TABLET PO SCH (21:21)
[2025-05-22] VITALS (106 sets, daily range): BP systolic 122–165; BP diastolic 71–100; PULSE 85–102; RESP 16–25; TEMP 97.9–99.4; O2SAT 93–98
[2025-05-22] MEDS: PROPOFOL 10MG/ML 100ML 100 ML IV PRN (08:42)
[2025-05-23] VITALS (104 sets, daily range): BP systolic 111–148; BP diastolic 65–92; PULSE 82–94; RESP 16–27; TEMP 36.6–36.7; O2SAT 92–98
[2025-05-23 05:47] LABS: BASOPHILS % 2.0 % (0.0-2.0); EOSINOPHILS % 4.4 % (0.0-5.0); HEMATOCRIT. 26.6 % (42.0-52.0); HEMOGLOBIN. 8.7 g/dL (14.0-18.0); LYMPHOCYTES % 15.3 % (20.0-50.0); MEAN PLATELET VOLUME 9.3 fl (7.4-10.4); MONOCYTES % 13.4 % (2.0-8.0); NEUTROPHILS % 64.9 % (40.0-76.0); PLATELET 256 x1000/uL (130-400); RED BLOOD CELL COUNT 3.23 mill/uL (4.7-6.1); RED CELL DISTRIBUTION WIDTH 20.3 % (11.6-14.6)
[2025-05-23 06:03] LABS: TRIGLYCERIDE 127.0 mg/dL (0-150)
[2025-05-23 06:04] LABS: UREA NITROGEN BLOOD 51.0 mg/dL (9-23)
[2025-05-23 06:13] LABS: CREATININE 7.7 mg/dL (0.6-1.3)
[2025-05-23] MEDS: PROPOFOL 10MG/ML 100ML 100 ML IV PRN (16:08)
[2025-05-23] MEDS: MIDAZOLAM 100MG/100ML PMX 100 ML IV PRN (23:01)
[2025-05-24] VITALS (86 sets, daily range): BP systolic 121–154; BP diastolic 79–99; PULSE 80–98; RESP 3–33; TEMP 97.4–98.8; O2SAT 82–100
[2025-05-24 06:23] LABS: BASOPHILS % 2.0 % (0.0-2.0); EOSINOPHILS % 4.1 % (0.0-5.0); HEMATOCRIT. 26.2 % (42.0-52.0); HEMOGLOBIN. 8.7 g/dL (14.0-18.0); LYMPHOCYTES % 15.0 % (20.0-50.0); MEAN PLATELET VOLUME 9.5 fl (7.4-10.4); MONOCYTES % 11.9 % (2.0-8.0); NEUTROPHILS % 67.0 % (40.0-76.0); PLATELET 293 x1000/uL (130-400); RED BLOOD CELL COUNT 3.13 mill/uL (4.7-6.1); RED CELL DISTRIBUTION WIDTH 20.4 % (11.6-14.6)
[2025-05-24 06:32] LABS: TRIGLYCERIDE 161.0 mg/dL (0-150)
[2025-05-24 06:33] LABS: UREA NITROGEN BLOOD 58.0 mg/dL (9-23)
[2025-05-24 06:35] LABS: CREATININE 8.6 mg/dL (0.6-1.3)
[2025-05-24] MEDS: GLYCOPYRROLATE 0.2 MG/ML 2ML VIAL IV NR (13:20)
[2025-05-24] MEDS ORDERED: NALOXONE HCL 0.4MG/ML VIAL IV PRN (15:30)
[2025-05-24] MEDS ORDERED: HYDROMORPHONE HCL/PF 2MG/ML INJ IV PRN (15:30)
[2025-05-24] MEDS ORDERED: LORAZEPAM 2MG/ML UD SYRINGE IV PRN (15:30)
[2025-05-24] MEDS: MORPHINE SULFATE 250 MG in DEXT 5% WATER 225 ML IV PRN (16:31)
[2025-05-24] MEDS ORDERED: MIDAZOLAM HCL 100 MG in SODIUM CHLORIDE 0.9% 80 ML IV PRN (17:15)
[2025-05-24] MEDS ORDERED: ATROPINE SULFATE 1% OPHTH 2ML SL SCH (22:00)
== END 2025-05-24 20:30 | DRG 207 ==
LOC: ER 07:15 → EDBEDREQ 07:32 → CVICU 09:01 → EDBEDREQTM 09:16 → EDBEDREQ 09:16 → EDBEDREQTM 09:20 → EDBEDREQSVC 09:20 → ENRESERV 11:47
PROVIDERS: ADMIT Student in an Organized Health Care Education/Training Program; ATTEND Student in an Organized Health Care Education/Training Program
PROC: 5A1955Z Respiratory Ventilation, Greater than 96 Consecutive Hours (ICD-10-PCS; principal; 2025-05-05)
PROC: 0BH17EZ Insertion of Endotracheal Airway into Trachea, Via Natural or Artificial Opening (ICD-10-PCS; 2025-05-05)
PROC: 5A12012 Performance of Cardiac Output, Single, Manual (ICD-10-PCS; 2025-05-05)
PROC: 5A12012 Performance of Cardiac Output, Single, Manual (ICD-10-PCS; 2025-05-05)
PROC: 02HV33Z Insertion of Infusion Device into Superior Vena Cava, Percutaneous Approach (ICD-10-PCS; 2025-05-05)
PROC: B548ZZA Ultrasonography of Superior Vena Cava, Guidance (ICD-10-PCS; 2025-05-05)
PROC: 5A1D70Z Performance of Urinary Filtration, Intermittent, Less than 6 Hours Per Day (ICD-10-PCS; 2025-05-05)
PROC: 5A1D70Z Performance of Urinary Filtration, Intermittent, Less than 6 Hours Per Day (ICD-10-PCS; 2025-05-07)
PROC: 4A00X4Z Measurement of Central Nervous Electrical Activity, External Approach (ICD-10-PCS; 2025-05-08)
PROC: 5A1D70Z Performance of Urinary Filtration, Intermittent, Less than 6 Hours Per Day (ICD-10-PCS; 2025-05-09)
PROC: 5A1D70Z Performance of Urinary Filtration, Intermittent, Less than 6 Hours Per Day (ICD-10-PCS; 2025-05-10)
PROC: 5A1D70Z Performance of Urinary Filtration, Intermittent, Less than 6 Hours Per Day (ICD-10-PCS; 2025-05-11)
PROC: 4A00X4Z Measurement of Central Nervous Electrical Activity, External Approach (ICD-10-PCS; 2025-05-12)
PROC: 5A1D70Z Performance of Urinary Filtration, Intermittent, Less than 6 Hours Per Day (ICD-10-PCS; 2025-05-12)
PROC: 5A1D70Z Performance of Urinary Filtration, Intermittent, Less than 6 Hours Per Day (ICD-10-PCS; 2025-05-13)
PROC: 5A1D70Z Performance of Urinary Filtration, Intermittent, Less than 6 Hours Per Day (ICD-10-PCS; 2025-05-15)
PROC: 4A00X4Z Measurement of Central Nervous Electrical Activity, External Approach (ICD-10-PCS; 2025-05-17)
PROC: 5A1D70Z Performance of Urinary Filtration, Intermittent, Less than 6 Hours Per Day (ICD-10-PCS; 2025-05-17)
PROC: 5A1D70Z Performance of Urinary Filtration, Intermittent, Less than 6 Hours Per Day (ICD-10-PCS; 2025-05-19)
PROC: 4A00X4Z Measurement of Central Nervous Electrical Activity, External Approach (ICD-10-PCS; 2025-05-20)
PROC: 5A1D70Z Performance of Urinary Filtration, Intermittent, Less than 6 Hours Per Day (ICD-10-PCS; 2025-05-21)
PROC: 5A1D70Z Performance of Urinary Filtration, Intermittent, Less than 6 Hours Per Day (ICD-10-PCS; 2025-05-24)
DX: J96.01 Acute respiratory failure with hypoxia (principal); G92.8 Other toxic encephalopathy; I21.A1 Myocardial infarction type 2; N18.6 End stage renal disease; J69.0 Pneumonitis due to inhalation of food and vomit; I46.9 Cardiac arrest, cause unspecified; G93.1 Anoxic brain damage, not elsewhere classified; I13.2 Hypertensive heart and chronic kidney disease with heart failure and with stage 5 chronic kidney disease, or end stage renal disease; R57.9 Shock, unspecified; G40.901 Epilepsy, unspecified, not intractable, with status epilepticus; D69.6 Thrombocytopenia, unspecified; E83.39 Other disorders of phosphorus metabolism; Z99.2 Dependence on renal dialysis; Z79.01 Long term (current) use of anticoagulants; I27.29 Other secondary pulmonary hypertension; D64.9 Anemia, unspecified; I36.1 Nonrheumatic tricuspid (valve) insufficiency; I50.42 Chronic combined systolic (congestive) and diastolic (congestive) heart failure; E87.20 Acidosis, unspecified; Z20.822 Contact with and (suspected) exposure to COVID-19; R00.1 Bradycardia, unspecified; I16.0 Hypertensive urgency; S40.821A Blister (nonthermal) of right upper arm, initial encounter; E87.5 Hyperkalemia; E83.52 Hypercalcemia; E83.41 Hypermagnesemia; I44.0 Atrioventricular block, first degree; I48.91 Unspecified atrial fibrillation; E16.2 Hypoglycemia, unspecified; Z91.158 Patient's noncompliance with renal dialysis for other reason; X58.XXXA Exposure to other specified factors, initial encounter; Y93.89 Activity, other specified; Y92.89 Other specified places as the place of occurrence of the external cause; Y99.8 Other external cause status; Z51.5 Encounter for palliative care
CPT/HCPCS: 31500; 31720; 36415; 36573; 36600; 70551; 71045; 71275; 80048; 80051; 80053; 80076; 80184; 80305; 80307; 80339; 82270; 82375; 82550; 82805; 82962; 83036; 83605; 83735; 84100; 84145; 84478; 84484; 85025; 85027; 85379; 86705; 86709; 87015; 87045; 87070; 87340; 87426; 87427; 87449; 89055; 90935; 93005; 93306; 93970; 94002; 94003; 94070; 94640; 94664; 95816; 98960; 99291; A4606; C1725; J0360; J0692; J0885; J1265; J1650; J1815; J1953; J2003; J2060; J2250; J2405; J2470; J2543; J2560; J2704; J3010; J3373; J3475; J3490; J7040; J7042; J7050; J7060; Q9967